=== PATIENT | female | born 2000 | race Caucasian/White ===

== ENCOUNTER → 2020-11-22 14:35 | Observation (INO) | END | disposition home or self-care (01) | LOC: 1NENULAB | PROVIDERS: ADMIT Obstetrics & Gynecology; ATTEND Obstetrics & Gynecology ==

== ENCOUNTER 2020-11-24 03:24 | Inpatient (IN) ==
[~2020-11-24 03:24] MED LIST: *HR* Nalbuphine 10 MG/ML AMPUL IV PRN; Famotidine 20 MG/2 ML VIAL IVP PRN; Metoclopramide 10 MG/2 ML VIAL IVP PRN; Naloxone 0.4 MG/ML INJ IVP PRN
[2020-11-24 05:40] LABS: Basophils # 0.1 K/mcL (0.0-0.2); Basophils % 0.5 %; Eosinophils # 0.1 K/mcL (0.0-0.6); Eosinophils % 0.6 %; Hematocrit 31.8 % (35.3-44.9); Hemoglobin 10.1 g/dL (11.5-15.4); Immature Granulocytes % 1.1 % (0-4); Lymphocytes # 1.8 K/mcL (0.6-4.6); Lymphocytes % 16.7 %; Mean Corpuscular HGB Conc 31.8 g/dL (31.6-35.5); Mean Corpuscular Hemoglobin 29.4 pg (28.0-33.3); Mean Corpuscular Volume 92.7 fL (83.0-100.0); Mean Platelet Volume 11.8 fL (9.4-12.4); Monocytes # 0.8 K/mcL (0.0-1.3); Monocytes % 7.6 %; Neutrophils # 7.9 K/mcL (1.6-8.9); Platelet Count 154 K/mcL (140-400); Red Blood Count 3.43 M/mcL (3.82-4.97); Red Cell Distribution Width 12.3 % (11.5-14.5); Segmented Neutrophils % 73.5 %; White Blood Count 10.8 K/mcL (4.3-11.1)
[2020-11-24 08:32] LABS: Influenza A PCR Negative (Negative); Influenza B PCR Negative (Negative); Resp. Syncytial Virus PCR Negative (Negative)
[2020-11-24 08:33] LABS: SARS-CoV-2 by PCR (In House) Negative (Negative)
[2020-11-24] MEDS ORDERED: Oxytocin 20 units/ LR 1000 mL 20 UNIT/1,000 ML BAG IVC SCH (11:45)
[2020-11-24] MEDS ORDERED: Ondansetron 4 MG/2 ML VIAL IVP PRN (11:54)
[2020-11-24] MEDS ORDERED: Naloxone 0.4 MG/ML INJ IVP PRN (11:54)
[2020-11-24] MEDS ORDERED: EPHEDrine 50 MG/ML VIAL IVP PRN (11:54)
[2020-11-24] MEDS ORDERED: Ropivacaine/PF 0.2% 20 ML VIAL EP ONE (11:54)
[2020-11-24] MEDS ORDERED: Epidural Premix (fent/bupiv) 110 ML EP SCH (12:00)
[2020-11-24] MEDS: Ringers Solution, Lactated 1,000 ML IVC SCH ×2 (12:07→12:49)
[2020-11-24] MEDS ORDERED: Ropivacaine/PF 0.2% 20 ML VIAL ONE (12:23)
[2020-11-24] MEDS ORDERED: Acetaminophen 325 MG TABLET PO ONE (20:15)
[2020-11-25] MEDS ORDERED: Oxytocin 20 units/ LR 1000 mL 20 UNIT/1,000 ML BAG IVC SCH (01:40)
[2020-11-25] MEDS ORDERED: Measles/Mumps/Rubella Vacc 0.5 ML VIAL SQ PRN (01:40)
[2020-11-25] MEDS ORDERED: Rho Immune Globulin 1,500 UNIT SYRINGE IM PRN (01:40)
[2020-11-25] MEDS: Ibuprofen 600 MG TABLET PO PRN ×3 (02:44→20:16)
[2020-11-25] MEDS: Acetaminophen 325 MG TABLET PO PRN ×2 (04:03→20:17)
[2020-11-25] MEDS ORDERED: Benzocaine/Menthol 56 GM AEROSOL SPRAY TP PRN (04:05)
[2020-11-25 04:31] LABS: Basophils % 0.1 %; Eosinophils % 0.1 %; Lymphocytes % 3.3 %; Red Cell Distribution Width 12.1 % (11.5-14.5)
[2020-11-25 04:33] LABS: Hematocrit 26.6 % (35.3-44.9); Hemoglobin 8.9 g/dL (11.5-15.4); Immature Granulocytes % 1.2 % (0-4); Immature Platelets 9.8 % (1.1-6.1); Lymphocytes # 0.7 K/mcL (0.6-4.6); Mean Corpuscular HGB Conc 33.5 g/dL (31.6-35.5); Mean Corpuscular Hemoglobin 30.4 pg (28.0-33.3); Mean Corpuscular Volume 90.8 fL (83.0-100.0); Mean Platelet Volume 12.1 fL (9.4-12.4); Monocytes # 1.2 K/mcL (0.0-1.3); Monocytes % 5.4 %; Neutrophils # 20.1 K/mcL (1.6-8.9); Platelet Count 128 K/mcL (140-400); Red Blood Count 2.93 M/mcL (3.82-4.97); Segmented Neutrophils % 89.9 %; White Blood Count 22.4 K/mcL (4.3-11.1)
[2020-11-25] MEDS: Prenatal Vit/FA 1 EACH TABLET PO SCH (09:03)
[2020-11-26] MEDS: Prenatal Vit/FA 1 EACH TABLET PO SCH (08:07)
[2020-11-26 08:23] VITALS: BP 113/75
[2020-11-26] MEDS: Acetaminophen 325 MG TABLET PO PRN (10:05)
[2020-11-26] MEDS: Ibuprofen 600 MG TABLET PO PRN (10:05)
== END 2020-11-26 14:45 | disposition home or self-care (01) | DRG 560 ==
LOC: 1NENULAB → 1NENUOBS 11-25 01:46
PROVIDERS: ADMIT Obstetrics & Gynecology; ATTEND Obstetrics & Gynecology